=== PATIENT | male | born 1960 | race African-American/Black ===

== ENCOUNTER 2021-09-14 16:59 | Inpatient (IN) ==
[2021-09-14] MEDS ORDERED: MORPHINE 2 MG/1 ML SYRINGE IV STA (17:26)
[2021-09-14] MEDS ORDERED: SODIUM CHLORIDE 0.9% 1,000 ML IV STA (17:26)
[2021-09-14] MEDS ORDERED: ONDANSETRON 4 MG/2 ML VIAL IV STA (17:26)
[2021-09-14 17:41] LABS: Basophils % 0.2 % (0.0-0.8); Eosinophils # 0.1 10*3/uL (0.0-0.87); Eosinophils % 0.8 % (0.00-10.9); Hematocrit 39.3 VOL% (42.0-52.0); Hemoglobin 13.1 GM/DL (14.0-18.0); Immature Granulocytes % 1.3 %; Immature Granulocytes Absolute 0.14 #; Lymphocytes # 0.8 10*3/uL (1.4-4.0); Lymphocytes % 6.8 % (21.2-54.2); Mean Corpuscular HGB Conc 33.3 GM/DL (32-36); Mean Corpuscular Volume 97.5 FL (87-102); Mean Platelet Volume 9.8 FL (9.6-12.0); Monocytes % 12.3 % (1.7-12.7); Neutrophils % 78.6 % (38.7-73.9); Platelet Count 385 T/CUMM (130-400); Red Blood Count 4.03 MC/CUMM (3.8-5.5); Red Cell Distribution Width 12.6 % (9.3-17.3); White Blood Count 11.1 T/CUMM (4-12)
[2021-09-14 17:49] LABS: INR 1.1; PT Patient Result 12.3 SECS (10.5-12.0); Partial Thromboplastin Time 33.6 SECS (23.8-32.1)
[2021-09-14 17:57] LABS: Albumin 2.6 G/DL (3.4-5.0); Bilirubin,Total 1.4 MG/DL (0.20-1.00); Calcium 8.7 MG/DL (8.5-10.1); Osmolality,Calculated 276.5 MOS/KG (273-304); Potassium 4.4 MMOL/L (3.5-5.1); Total Protein 6.3 G/DL (6.4-8.2)
[2021-09-14] MEDS ORDERED: HYDROmorphone 2 MG/1 ML VIAL ONE (19:20)
[2021-09-14] MEDS ORDERED: HYDROmorphone 2 MG/1 ML VIAL IV ONE (19:30)
[2021-09-14] MEDS ORDERED: NITROGLYCERIN SL 0.4 MG TABLET SL PRN (20:32)
[2021-09-14] MEDS ORDERED: AMITRIPTYLINE 50 MG TABLET PO SCH (21:00)
[2021-09-14] MEDS ORDERED: carvediloL 12.5 MG TABLET PO SCH (21:00)
[2021-09-14] MEDS ORDERED: MULTIVITAMIN (BEROCCA) TABLET PO SCH (21:00)
[2021-09-14] MEDS ORDERED: MELOXICAM 7.5 MG TABLET PO SCH (21:00)
[2021-09-14] MEDS ORDERED: GABAPENTIN 400 MG CAPSULE PO SCH (21:00)
[2021-09-14] MEDS ORDERED: DEXAMETHASONE 4 MG TABLET PO SCH (21:00)
[2021-09-14] MEDS ORDERED: HYDROmorphone 2 MG/1 ML VIAL IV STA (23:05)
[2021-09-15] MEDS: SODIUM CHLORIDE 0.9% 1,000 ML IV SCH ×3 (01:07→18:08)
[2021-09-15] MEDS ORDERED: DEXTROSE 50% 25 GM/50 ML VIAL IV PRN (01:30)
[2021-09-15] MEDS ORDERED: GLUCAGON 1 MG VIAL IM PRN (01:30)
[2021-09-15] MEDS ORDERED: ONDANSETRON 4 MG/2 ML VIAL IV PRN (01:30)
[2021-09-15] MEDS: DOCUSATE SODIUM 100 MG CAPSULE PO SCH ×3 (01:41→20:43)
[2021-09-15] MEDS: INSULIN REGULAR 100 UNIT/ML SUBCUT SCH ×5 (01:41→20:44)
[2021-09-15] MEDS: oxyCODONE IR 5 MG TABLET PO PRN ×3 (02:46→19:29)
[2021-09-15] MEDS ORDERED: GLIMEPIRIDE 2 MG TABLET PO SCH (07:30)
[2021-09-15] MEDS ORDERED: metFORMIN 500 MG TABLET PO SCH (08:00)
[2021-09-15] MEDS ORDERED: PANTOPRAZOLE 20 MG TABLET PO SCH (09:00)
[2021-09-15] MEDS ORDERED: amLODIPine 10 MG TABLET PO SCH (09:00)
[2021-09-15] MEDS ORDERED: ASPIRIN EC 81 MG TABLET PO SCH (09:00)
[2021-09-15] MEDS ORDERED: LOSARTAN 25 MG TABLET PO SCH (09:00)
[2021-09-15] MEDS: PANTOPRAZOLE 40 MG TABLET PO SCH (09:10)
[2021-09-15] MEDS: HYDROmorphone 2 MG/1 ML VIAL IV PRN ×3 (09:16→21:53)
[2021-09-15] MEDS: ENOXAPARIN 40 MG/0.4 ML SYRINGE SUBCUT SCH (12:49)
[2021-09-16] MEDS: oxyCODONE IR 5 MG TABLET PO PRN (01:09)
[2021-09-16] MEDS: SODIUM CHLORIDE 0.9% 1,000 ML IV SCH ×3 (02:13→20:27)
[2021-09-16] MEDS: HYDROmorphone 2 MG/1 ML VIAL IV PRN ×6 (02:21→23:39)
[2021-09-16] MEDS: INSULIN REGULAR 100 UNIT/ML SUBCUT SCH ×4 (07:39→20:27)
[2021-09-16] MEDS: DOCUSATE SODIUM 100 MG CAPSULE PO SCH ×2 (08:00→20:27)
[2021-09-16] MEDS: PANTOPRAZOLE 40 MG TABLET PO SCH (08:00)
[2021-09-16] MEDS: oxyCODONE IR 5 MG TABLET PO SCH ×3 (12:15→22:32)
[2021-09-16] MEDS: SERTRALINE 25 MG TABLET PO SCH (12:18)
[2021-09-16] MEDS: ENOXAPARIN 40 MG/0.4 ML SYRINGE SUBCUT SCH (13:52)
[2021-09-17] MEDS: OXYCODONE 15 MG PO SCH ×5 (02:59→23:43)
[2021-09-17] MEDS: SODIUM CHLORIDE 0.9% 1,000 ML IV SCH ×3 (04:36→21:05)
[2021-09-17] MEDS: HYDROmorphone 2 MG/1 ML VIAL IV PRN ×5 (06:50→21:00)
[2021-09-17] MEDS: INSULIN REGULAR 100 UNIT/ML SUBCUT SCH ×4 (07:50→20:42)
[2021-09-17] MEDS: PANTOPRAZOLE 40 MG TABLET PO SCH (09:38)
[2021-09-17] MEDS: SERTRALINE 25 MG TABLET PO SCH (09:38)
[2021-09-17] MEDS: fentaNYL 50 MCG/HR PATCH TRANSDERM SCH (09:38)
[2021-09-17] MEDS: DOCUSATE SODIUM 100 MG CAPSULE PO SCH ×2 (09:38→21:01)
[2021-09-17] MEDS: ENOXAPARIN 40 MG/0.4 ML SYRINGE SUBCUT SCH (12:02)
[2021-09-17] MEDS: oxyCODONE IR 5 MG TABLET PO SCH ×3 (12:02→23:10)
[2021-09-17] MEDS: GABAPENTIN 400 MG CAPSULE PO SCH ×3 (14:17→20:47)
[2021-09-18] MEDS ORDERED: ALBUTEROL/IPRATROPIUM 3 ML NEB RESP TX PRN (02:14)
[2021-09-18] MEDS: HYDROmorphone 2 MG/1 ML VIAL IV PRN ×5 (03:27→21:04)
[2021-09-18] MEDS: LEVALBUTEROL 0.63 MG/3 ML NEB RESP TX PRN ×2 (03:40→13:50)
[2021-09-18] MEDS: SODIUM CHLORIDE 0.9% 1,000 ML IV SCH (05:05)
[2021-09-18] MEDS: OXYCODONE 15 MG PO SCH ×4 (05:58→23:56)
[2021-09-18] MEDS: oxyCODONE IR 5 MG TABLET PO SCH ×4 (06:03→23:56)
[2021-09-18] MEDS: INSULIN REGULAR 100 UNIT/ML SUBCUT SCH ×4 (08:14→20:57)
[2021-09-18] MEDS: DOCUSATE SODIUM 100 MG CAPSULE PO SCH ×2 (08:46→20:56)
[2021-09-18] MEDS: PANTOPRAZOLE 40 MG TABLET PO SCH (08:46)
[2021-09-18] MEDS: GABAPENTIN 400 MG CAPSULE PO SCH ×4 (08:46→21:08)
[2021-09-18] MEDS: SERTRALINE 25 MG TABLET PO SCH (08:46)
[2021-09-18] MEDS: ENOXAPARIN 40 MG/0.4 ML SYRINGE SUBCUT SCH (11:25)
[2021-09-18 11:41] LABS: Basophils % 0.2 % (0.0-0.8); Eosinophils # 0.1 10*3/uL (0.0-0.87); Eosinophils % 0.5 % (0.00-10.9); Hematocrit 34.8 VOL% (42.0-52.0); Hemoglobin 11.2 GM/DL (14.0-18.0); Immature Granulocytes % 1.1 %; Immature Granulocytes Absolute 0.11 #; Lymphocytes # 0.8 10*3/uL (1.4-4.0); Lymphocytes % 7.7 % (21.2-54.2); Mean Corpuscular HGB Conc 32.2 GM/DL (32-36); Mean Corpuscular Volume 99.7 FL (87-102); Mean Platelet Volume 9.8 FL (9.6-12.0); Monocytes % 14.7 % (1.7-12.7); Neutrophils % 75.8 % (38.7-73.9); Platelet Count 329 T/CUMM (130-400); Red Blood Count 3.49 MC/CUMM (3.8-5.5); Red Cell Distribution Width 12.8 % (9.3-17.3); White Blood Count 10.3 T/CUMM (4-12)
[2021-09-18 11:54] LABS: Albumin 2.3 G/DL (3.4-5.0); Bilirubin,Direct 0.47 MG/DL (0.0-0.20); Bilirubin,Indirect 0.4 MG/DL (0.0-1.0); Bilirubin,Total 0.9 MG/DL (0.20-1.00); Calcium 7.8 MG/DL (8.5-10.1); Osmolality,Calculated 277.4 MOS/KG (273-304); Total Protein 6.3 G/DL (6.4-8.2)
[2021-09-18] MEDS ORDERED: hydrALAZINE 20 MG/1 ML VIAL IV PRN (15:18)
[2021-09-18] MEDS: METOPROLOL TARTRATE 5 MG/5 ML VIAL IV SCH ×2 (18:13→23:57)
[2021-09-19] MEDS: METOPROLOL TARTRATE 5 MG/5 ML VIAL IV SCH ×3 (00:30→17:52)
[2021-09-19] MEDS: LEVALBUTEROL 0.63 MG/3 ML NEB RESP TX PRN ×2 (00:58→11:45)
[2021-09-19] MEDS: HYDROmorphone 2 MG/1 ML VIAL IV PRN ×6 (02:10→21:33)
[2021-09-19] MEDS: oxyCODONE IR 5 MG TABLET PO SCH ×4 (05:49→23:52)
[2021-09-19] MEDS: OXYCODONE 15 MG PO SCH ×4 (05:53→23:52)
[2021-09-19 06:03] LABS: Basophils % 0.1 % (0.0-0.8); Eosinophils # 0.1 10*3/uL (0.0-0.87); Eosinophils % 0.4 % (0.00-10.9); Hematocrit 34.6 VOL% (42.0-52.0); Hemoglobin 11.1 GM/DL (14.0-18.0); Immature Granulocytes % 0.9 %; Immature Granulocytes Absolute 0.13 #; Lymphocytes % 7.4 % (21.2-54.2); Mean Corpuscular HGB Conc 32.1 GM/DL (32-36); Mean Corpuscular Volume 98.6 FL (87-102); Monocytes % 14.9 % (1.7-12.7); Neutrophils % 76.3 % (38.7-73.9); Platelet Count 359 T/CUMM (130-400); Red Blood Count 3.51 MC/CUMM (3.8-5.5); Red Cell Distribution Width 12.8 % (9.3-17.3); White Blood Count 14.1 T/CUMM (4-12)
[2021-09-19 06:29] LABS: Albumin 2.2 G/DL (3.4-5.0); Bilirubin,Direct 0.74 MG/DL (0.0-0.20); Bilirubin,Indirect 1.2 MG/DL (0.0-1.0); Bilirubin,Total 1.9 MG/DL (0.20-1.00); Calcium 8.1 MG/DL (8.5-10.1); Osmolality,Calculated 273.7 MOS/KG (273-304); Total Protein 6.4 G/DL (6.4-8.2)
[2021-09-19 06:59] LABS: Free T4 (Free Thyroxine) 1.48 NG/DL (0.76-1.46); Thyroid Stimulating Hormone 0.656 uIU/ml (0.358-3.74)
[2021-09-19] MEDS: DOCUSATE SODIUM 100 MG CAPSULE PO SCH ×2 (10:52→21:24)
[2021-09-19] MEDS: SERTRALINE 25 MG TABLET PO SCH (10:53)
[2021-09-19] MEDS: GABAPENTIN 400 MG CAPSULE PO SCH ×4 (10:53→21:25)
[2021-09-19] MEDS: INSULIN REGULAR 100 UNIT/ML SUBCUT SCH ×4 (10:53→21:25)
[2021-09-19] MEDS: PANTOPRAZOLE 40 MG TABLET PO SCH (10:53)
[2021-09-19] MEDS: ENOXAPARIN 40 MG/0.4 ML SYRINGE SUBCUT SCH (12:48)
[2021-09-19] MEDS ORDERED: METOPROLOL TARTRATE 25 MG TABLET PO SCH (13:00)
[2021-09-19] MEDS: METOPROLOL TARTRATE 50 MG TABLET PO SCH (21:24)
[2021-09-20] MEDS: HYDROmorphone 2 MG/1 ML VIAL IV PRN ×4 (02:34→20:31)
[2021-09-20] MEDS: oxyCODONE IR 5 MG TABLET PO SCH ×3 (05:07→16:30)
[2021-09-20 05:16] LABS: Basophils % 0.1 % (0.0-0.8); Eosinophils # 0.1 10*3/uL (0.0-0.87); Eosinophils % 0.4 % (0.00-10.9); Hematocrit 34.8 VOL% (42.0-52.0); Hemoglobin 11.3 GM/DL (14.0-18.0); Immature Granulocytes % 1.2 %; Immature Granulocytes Absolute 0.17 #; Lymphocytes % 7.3 % (21.2-54.2); Mean Corpuscular HGB Conc 32.5 GM/DL (32-36); Mean Platelet Volume 9.7 FL (9.6-12.0); Monocytes % 14.3 % (1.7-12.7); Neutrophils % 76.7 % (38.7-73.9); Platelet Count 350 T/CUMM (130-400); Red Blood Count 3.48 MC/CUMM (3.8-5.5); Red Cell Distribution Width 12.7 % (9.3-17.3); White Blood Count 14.2 T/CUMM (4-12)
[2021-09-20 05:44] LABS: Calcium 8.3 MG/DL (8.5-10.1); Osmolality,Calculated 274.7 MOS/KG (273-304)
[2021-09-20 05:48] LABS: Risk Ratio 3.07; VLDL Cholesterol 15.8 MG/DL
[2021-09-20] MEDS: OXYCODONE 15 MG PO SCH ×3 (06:06→17:21)
[2021-09-20] MEDS: METOPROLOL TARTRATE 50 MG TABLET PO SCH (08:46)
[2021-09-20] MEDS: GABAPENTIN 400 MG CAPSULE PO SCH ×4 (08:46→21:24)
[2021-09-20] MEDS: PANTOPRAZOLE 40 MG TABLET PO SCH (08:46)
[2021-09-20] MEDS: DOCUSATE SODIUM 100 MG CAPSULE PO SCH ×2 (08:46→20:30)
[2021-09-20] MEDS: SERTRALINE 25 MG TABLET PO SCH (08:46)
[2021-09-20] MEDS: fentaNYL 50 MCG/HR PATCH TRANSDERM SCH (08:47)
[2021-09-20] MEDS: INSULIN REGULAR 100 UNIT/ML SUBCUT SCH ×4 (09:56→21:23)
[2021-09-20] MEDS: ENOXAPARIN 40 MG/0.4 ML SYRINGE SUBCUT SCH (11:01)
[2021-09-20] MEDS: BISOPROLOL 5 MG TABLET PO SCH ×2 (15:13→20:30)
[2021-09-20] MEDS ORDERED: ASPIRIN CHEW 81 MG TABLET PO ONE (15:15)
[2021-09-21] MEDS: oxyCODONE IR 5 MG TABLET PO SCH ×4 (00:13→18:04)
[2021-09-21] MEDS: OXYCODONE 15 MG PO SCH ×4 (00:31→18:29)
[2021-09-21] MEDS: HYDROmorphone 2 MG/1 ML VIAL IV PRN ×6 (01:49→22:46)
[2021-09-21] MEDS: LEVALBUTEROL 0.63 MG/3 ML NEB RESP TX PRN (07:21)
[2021-09-21] MEDS: ASPIRIN CHEW 81 MG TABLET PO SCH (08:53)
[2021-09-21] MEDS: SERTRALINE 25 MG TABLET PO SCH (08:53)
[2021-09-21] MEDS: PANTOPRAZOLE 40 MG TABLET PO SCH (08:53)
[2021-09-21] MEDS: GABAPENTIN 400 MG CAPSULE PO SCH ×4 (08:53→21:18)
[2021-09-21] MEDS: BISOPROLOL 5 MG TABLET PO SCH ×2 (08:53→21:17)
[2021-09-21] MEDS: DOCUSATE SODIUM 100 MG CAPSULE PO SCH ×2 (08:53→21:17)
[2021-09-21] MEDS: INSULIN REGULAR 100 UNIT/ML SUBCUT SCH ×4 (10:09→21:18)
[2021-09-21] MEDS: ENOXAPARIN 40 MG/0.4 ML SYRINGE SUBCUT SCH (12:22)
[2021-09-21] MEDS ORDERED: BISOPROLOL 5 MG TABLET PO ONE (12:35)
[2021-09-21] MEDS ORDERED: NITROGLYCERIN SL 0.4 MG TABLET SL PRN (12:39)
[2021-09-22] MEDS: oxyCODONE IR 5 MG TABLET PO SCH ×5 (00:12→23:46)
[2021-09-22] MEDS: OXYCODONE 15 MG PO SCH ×4 (00:13→17:56)
[2021-09-22] MEDS: HYDROmorphone 2 MG/1 ML VIAL IV PRN ×6 (02:09→21:44)
[2021-09-22 05:34] LABS: Basophils % 0.3 % (0.0-0.8); Eosinophils % 0.1 % (0.00-10.9); Hematocrit 34.9 VOL% (42.0-52.0); Hemoglobin 11.3 GM/DL (14.0-18.0); Immature Granulocytes % 1.3 %; Immature Granulocytes Absolute 0.21 #; Lymphocytes % 6.5 % (21.2-54.2); Mean Corpuscular HGB Conc 32.4 GM/DL (32-36); Mean Corpuscular Volume 99.1 FL (87-102); Mean Platelet Volume 10.1 FL (9.6-12.0); Monocytes % 14.6 % (1.7-12.7); Neutrophils % 77.2 % (38.7-73.9); Platelet Count 412 T/CUMM (130-400); Red Blood Count 3.52 MC/CUMM (3.8-5.5); Red Cell Distribution Width 12.7 % (9.3-17.3); White Blood Count 15.8 T/CUMM (4-12)
[2021-09-22 06:04] LABS: Calcium 8.4 MG/DL (8.5-10.1); Osmolality,Calculated 271.8 MOS/KG (273-304)
[2021-09-22] MEDS: INSULIN REGULAR 100 UNIT/ML SUBCUT SCH ×4 (07:37→21:43)
[2021-09-22] MEDS: GABAPENTIN 400 MG CAPSULE PO SCH ×4 (12:14→21:44)
[2021-09-22] MEDS: ENOXAPARIN 40 MG/0.4 ML SYRINGE SUBCUT SCH (12:17)
[2021-09-22] MEDS ORDERED: LIDOCAINE 2% 5 ML VIAL ONE (13:06)
[2021-09-22] MEDS ORDERED: propofoL 200 MG/20 ML VIAL IV ONE (13:06)
[2021-09-22] MEDS ORDERED: fentaNYL 100 MCG/2 ML VIAL ONE (13:06)
[2021-09-22] MEDS ORDERED: MIDAZOLAM 2 MG/2 ML VIAL ONE (13:06)
[2021-09-22] MEDS ORDERED: BUPIVACAINE MPF 0.25% 30 ML VIAL ONE (13:14)
[2021-09-22] MEDS ORDERED: DEXAMETHASONE 10 MG/1 ML VIAL ONE (13:14)
[2021-09-22] MEDS ORDERED: KETAMINE 500 MG/10 ML VIAL ONE (13:33)
[2021-09-22] MEDS ORDERED: LIDOCAINE 1% 50 ML VIAL ONE (13:42)
[2021-09-22] MEDS ORDERED: ALBUTEROL/IPRATROPIUM 3 ML NEB RESP TX ONE (13:57)
[2021-09-22] MEDS: ASPIRIN CHEW 81 MG TABLET PO SCH (15:01)
[2021-09-22] MEDS: PANTOPRAZOLE 40 MG TABLET PO SCH (15:01)
[2021-09-22] MEDS: DOCUSATE SODIUM 100 MG CAPSULE PO SCH ×2 (15:01→21:43)
[2021-09-22] MEDS: SERTRALINE 25 MG TABLET PO SCH (15:01)
[2021-09-22] MEDS: BISOPROLOL 5 MG TABLET PO SCH ×2 (15:02→21:44)
[2021-09-23] MEDS: OXYCODONE 15 MG PO SCH ×4 (00:57→17:58)
[2021-09-23] MEDS: HYDROmorphone 2 MG/1 ML VIAL IV PRN ×8 (01:02→21:44)
[2021-09-23] MEDS: oxyCODONE IR 5 MG TABLET PO SCH ×3 (05:06→17:11)
[2021-09-23] MEDS ORDERED: fentaNYL 100 MCG/2 ML VIAL ONE ×3 (06:56→11:14)
[2021-09-23] MEDS ORDERED: KETAMINE 500 MG/10 ML VIAL ONE (06:56)
[2021-09-23] MEDS ORDERED: MIDAZOLAM 2 MG/2 ML VIAL ONE (06:57)
[2021-09-23] MEDS ORDERED: ePHEDrine 50 MG/ML VIAL ONE (06:57)
[2021-09-23] MEDS: INSULIN REGULAR 100 UNIT/ML SUBCUT SCH ×4 (07:46→21:37)
[2021-09-23] MEDS: SODIUM CHLORIDE 0.45% 1,000 ML IV SCH (09:40)
[2021-09-23] MEDS ORDERED: ALBUTEROL/IPRATROPIUM 3 ML NEB RESP TX ONE (10:06)
[2021-09-23] MEDS ORDERED: LIDOCAINE 2% 5 ML VIAL ONE (10:19)
[2021-09-23] MEDS ORDERED: propofoL 200 MG/20 ML VIAL IV ONE (10:19)
[2021-09-23] MEDS ORDERED: PHENYLEPHRINE 10 MG/1 ML VIAL IV ONE (10:19)
[2021-09-23] MEDS ORDERED: SEVOFLURANE 1 UNIT/15 MINUTE INH ONE (10:19)
[2021-09-23] MEDS ORDERED: DEXAMETHASONE 4 MG/1 ML VIAL ONE (10:20)
[2021-09-23] MEDS ORDERED: SODIUM CHLORIDE 0.9% 1,000 ML IV ONE (10:20)
[2021-09-23] MEDS ORDERED: ROCURONIUM 50 MG/5 ML VIAL IV ONE (10:20)
[2021-09-23] MEDS ORDERED: ONDANSETRON 4 MG/2 ML VIAL ONE (10:20)
[2021-09-23] MEDS ORDERED: PHENYLEPHRINE DRIP 20 MG/250 ML PREMIX IV ONE (10:20)
[2021-09-23] MEDS ORDERED: ALBUTEROL INHALER 18 GM INH ONE (10:20)
[2021-09-23] MEDS ORDERED: ONDANSETRON 4 MG/2 ML VIAL IV PRN (10:20)
[2021-09-23] MEDS ORDERED: SODIUM CHLORIDE 0.9% 100 ML IV ONE (10:20)
[2021-09-23] MEDS ORDERED: DEXMEDETOMIDINE 200 MCG/2 ML VIAL ONE (10:21)
[2021-09-23] MEDS ORDERED: DEXMEDETOMIDINE 200 MCG in SODIUM CHLORIDE 0.9% 48 ML IV PRN ×2 (10:25→11:00)
[2021-09-23] MEDS ORDERED: fentaNYL 100 MCG/2 ML VIAL IV ONE (11:14)
[2021-09-23] MEDS ORDERED: HYDROmorphone 2 MG/1 ML VIAL IV ONE ×2 (11:57→13:33)
[2021-09-23] MEDS: fentaNYL 50 MCG/HR PATCH TRANSDERM SCH (12:02)
[2021-09-23] MEDS: DOCUSATE SODIUM 100 MG CAPSULE PO SCH ×2 (12:27→21:36)
[2021-09-23] MEDS: GABAPENTIN 400 MG CAPSULE PO SCH ×4 (12:27→21:36)
[2021-09-23] MEDS: SERTRALINE 25 MG TABLET PO SCH (12:36)
[2021-09-23] MEDS: BISOPROLOL 5 MG TABLET PO SCH ×2 (12:36→21:36)
[2021-09-23] MEDS: PANTOPRAZOLE 40 MG TABLET PO SCH (12:36)
[2021-09-23] MEDS: ENOXAPARIN 40 MG/0.4 ML SYRINGE SUBCUT SCH (12:36)
[2021-09-23] MEDS: ASPIRIN CHEW 81 MG TABLET PO SCH (12:36)
[2021-09-23] MEDS ORDERED: ACETAMINOPHEN 500 MG TABLET PO ONE (13:33)
[2021-09-23] MEDS ORDERED: KETOROLAC 30 MG/1 ML VIAL IM ONE (13:33)
[2021-09-23] MEDS: fentaNYL 100 MCG/HR PATCH TRANSDERM SCH (18:11)
[2021-09-23] MEDS: KETOROLAC 30 MG/1 ML VIAL IM SCH (18:11)
[2021-09-24] MEDS: KETOROLAC 30 MG/1 ML VIAL IM SCH ×4 (00:50→17:54)
[2021-09-24] MEDS: oxyCODONE IR 5 MG TABLET PO SCH ×4 (00:55→18:32)
[2021-09-24] MEDS: OXYCODONE 15 MG PO SCH ×5 (00:55→17:58)
[2021-09-24] MEDS: HYDROmorphone 2 MG/1 ML VIAL IV PRN ×4 (03:27→21:19)
[2021-09-24] MEDS: BISOPROLOL 5 MG TABLET PO SCH ×2 (08:26→21:12)
[2021-09-24] MEDS: GABAPENTIN 400 MG CAPSULE PO SCH ×4 (08:26→21:12)
[2021-09-24] MEDS: DOCUSATE SODIUM 100 MG CAPSULE PO SCH ×2 (08:26→21:12)
[2021-09-24] MEDS: SERTRALINE 25 MG TABLET PO SCH (08:26)
[2021-09-24] MEDS: PANTOPRAZOLE 40 MG TABLET PO SCH (08:26)
[2021-09-24] MEDS: ASPIRIN CHEW 81 MG TABLET PO SCH (08:26)
[2021-09-24] MEDS: INSULIN REGULAR 100 UNIT/ML SUBCUT SCH ×4 (09:22→21:12)
[2021-09-24] MEDS: SODIUM CHLORIDE 0.45% 1,000 ML IV SCH (09:22)
[2021-09-24] MEDS: ENOXAPARIN 40 MG/0.4 ML SYRINGE SUBCUT SCH (10:40)
[2021-09-25] MEDS: KETOROLAC 30 MG/1 ML VIAL IM SCH ×3 (00:47→11:55)
[2021-09-25] MEDS: OXYCODONE 15 MG PO SCH ×4 (00:48→17:58)
[2021-09-25] MEDS: HYDROmorphone 2 MG/1 ML VIAL IV PRN ×2 (08:03→22:46)
[2021-09-25] MEDS: GABAPENTIN 400 MG CAPSULE PO SCH ×4 (08:04→21:55)
[2021-09-25] MEDS: SERTRALINE 25 MG TABLET PO SCH (08:04)
[2021-09-25] MEDS: PANTOPRAZOLE 40 MG TABLET PO SCH (08:04)
[2021-09-25] MEDS: ASPIRIN CHEW 81 MG TABLET PO SCH (08:04)
[2021-09-25] MEDS: BISOPROLOL 5 MG TABLET PO SCH ×2 (08:04→21:34)
[2021-09-25] MEDS: DOCUSATE SODIUM 100 MG CAPSULE PO SCH ×2 (08:04→21:34)
[2021-09-25] MEDS ORDERED: MAGNESIUM HYDROXIDE SUSP 30 ML UDCUP PO ONE (08:36)
[2021-09-25] MEDS: POLYETHYLENE GLYCOL POWDER 17 GM PACK PO SCH (09:14)
[2021-09-25] MEDS: INSULIN REGULAR 100 UNIT/ML SUBCUT SCH ×4 (09:22→21:55)
[2021-09-25] MEDS: ENOXAPARIN 40 MG/0.4 ML SYRINGE SUBCUT SCH (10:47)
[2021-09-25] MEDS: ACETAMINOPHEN 325 MG TABLET PO PRN (23:00)
[2021-09-26] MEDS: OXYCODONE 15 MG PO SCH ×4 (00:50→18:03)
[2021-09-26] MEDS: HYDROmorphone 2 MG/1 ML VIAL IV PRN ×3 (06:21→22:34)
[2021-09-26 07:05] LABS: Basophils % 0.1 % (0.0-0.8); Eosinophils % 0.1 % (0.00-10.9); Hematocrit 34.3 VOL% (42.0-52.0); Hemoglobin 11.2 GM/DL (14.0-18.0); Immature Granulocytes % 1.8 %; Immature Granulocytes Absolute 0.29 #; Lymphocytes # 0.8 10*3/uL (1.4-4.0); Lymphocytes % 4.8 % (21.2-54.2); Mean Corpuscular HGB Conc 32.7 GM/DL (32-36); Mean Corpuscular Volume 99.1 FL (87-102); Mean Platelet Volume 10.3 FL (9.6-12.0); Monocytes % 12.9 % (1.7-12.7); Neutrophils % 80.3 % (38.7-73.9); Platelet Count 270 T/CUMM (130-400); Red Blood Count 3.46 MC/CUMM (3.8-5.5); White Blood Count 16.4 T/CUMM (4-12)
[2021-09-26 07:30] LABS: Calcium 7.3 MG/DL (8.5-10.1); Osmolality,Calculated 274.7 MOS/KG (273-304); Potassium 4.5 MMOL/L (3.5-5.1)
[2021-09-26] MEDS: DOCUSATE SODIUM 100 MG CAPSULE PO SCH ×2 (08:42→20:32)
[2021-09-26] MEDS: ASPIRIN CHEW 81 MG TABLET PO SCH (08:42)
[2021-09-26] MEDS: GABAPENTIN 400 MG CAPSULE PO SCH ×4 (08:42→20:33)
[2021-09-26] MEDS: PANTOPRAZOLE 40 MG TABLET PO SCH (08:42)
[2021-09-26] MEDS: BISOPROLOL 5 MG TABLET PO SCH ×2 (08:42→20:32)
[2021-09-26] MEDS: POLYETHYLENE GLYCOL POWDER 17 GM PACK PO SCH (08:42)
[2021-09-26] MEDS: SERTRALINE 25 MG TABLET PO SCH (08:43)
[2021-09-26] MEDS: PIPERACILLIN/TAZOBACTAM 3,375 MG in SODIUM CHLORIDE 0.9% 100 ML IV SCH ×2 (08:43→17:04)
[2021-09-26 09:18] LABS: Hypochromasia Slight; Platelet Estimate Normal; Polychromasia Slight; Segmented Neutrophils 90 % (50-85); Total Cells Counted 100
[2021-09-26] MEDS: INSULIN REGULAR 100 UNIT/ML SUBCUT SCH ×4 (10:06→20:33)
[2021-09-26] MEDS: fentaNYL 100 MCG/HR PATCH TRANSDERM SCH (10:27)
[2021-09-26] MEDS: ENOXAPARIN 40 MG/0.4 ML SYRINGE SUBCUT SCH (12:36)
[2021-09-26] MEDS: ACETAMINOPHEN 325 MG TABLET PO PRN (15:30)
[2021-09-27] MEDS: OXYCODONE 15 MG PO SCH ×4 (00:19→17:06)
[2021-09-27] MEDS: PIPERACILLIN/TAZOBACTAM 3,375 MG in SODIUM CHLORIDE 0.9% 100 ML IV SCH ×3 (00:19→17:06)
[2021-09-27] MEDS: HYDROmorphone 2 MG/1 ML VIAL IV PRN ×3 (04:30→19:44)
[2021-09-27 08:14] LABS: Bilirubin,Direct 1.42 MG/DL (0.0-0.20); Bilirubin,Indirect 0.5 MG/DL (0.0-1.0); Bilirubin,Total 1.9 MG/DL (0.20-1.00); Total Protein 6.6 G/DL (6.4-8.2)
[2021-09-27] MEDS: INSULIN REGULAR 100 UNIT/ML SUBCUT SCH ×4 (08:54→20:58)
[2021-09-27] MEDS: POLYETHYLENE GLYCOL POWDER 17 GM PACK PO SCH (09:34)
[2021-09-27] MEDS: PANTOPRAZOLE 40 MG TABLET PO SCH (09:34)
[2021-09-27] MEDS: ASPIRIN CHEW 81 MG TABLET PO SCH (09:34)
[2021-09-27] MEDS: BISOPROLOL 5 MG TABLET PO SCH ×2 (09:34→20:58)
[2021-09-27] MEDS: DOCUSATE SODIUM 100 MG CAPSULE PO SCH ×2 (09:34→20:58)
[2021-09-27] MEDS: GABAPENTIN 400 MG CAPSULE PO SCH ×4 (09:34→20:58)
[2021-09-27] MEDS: SERTRALINE 25 MG TABLET PO SCH (09:34)
[2021-09-27] MEDS: ENOXAPARIN 40 MG/0.4 ML SYRINGE SUBCUT SCH (12:08)
[2021-09-27 12:58] LABS: Bilirubin,Urine Negative (Negative); Blood, Urine Negative (Negative); Glucose,Urine (UA) Negative (Negative); Ketones,Urine Negative (Negative); Nitrite,Urine Negative (Negative); Protein,Urine Negative; RBC,Urine 2 /HPF (0-4); Squamous Epithelial Cell,Urine Occasional /HPF (0-10); Urine Appearance CLEAR (Clear); Urine Color Amber (Yellow); Urine Specific Gravity 1.019 (1.001-1.035)
[2021-09-27] MEDS: ACETAMINOPHEN 325 MG TABLET PO PRN (21:11)
[2021-09-28] MEDS: PIPERACILLIN/TAZOBACTAM 3,375 MG in SODIUM CHLORIDE 0.9% 100 ML IV SCH ×3 (01:02→18:13)
[2021-09-28] MEDS: OXYCODONE 15 MG PO SCH ×5 (01:02→18:11)
[2021-09-28] MEDS: HYDROmorphone 2 MG/1 ML VIAL IV PRN ×6 (05:18→21:02)
[2021-09-28] MEDS: INSULIN REGULAR 100 UNIT/ML SUBCUT SCH ×4 (08:36→21:02)
[2021-09-28] MEDS: DOCUSATE SODIUM 100 MG CAPSULE PO SCH ×2 (09:28→21:01)
[2021-09-28] MEDS: POLYETHYLENE GLYCOL POWDER 17 GM PACK PO SCH (09:28)
[2021-09-28] MEDS: ASPIRIN CHEW 81 MG TABLET PO SCH (09:28)
[2021-09-28] MEDS: GABAPENTIN 400 MG CAPSULE PO SCH ×4 (09:28→21:02)
[2021-09-28] MEDS: BISOPROLOL 5 MG TABLET PO SCH ×2 (09:29→21:01)
[2021-09-28] MEDS: SERTRALINE 25 MG TABLET PO SCH (09:29)
[2021-09-28] MEDS: PANTOPRAZOLE 40 MG TABLET PO SCH (09:29)
[2021-09-28] MEDS ORDERED: PROMETHAZINE INJ 25 MG in SODIUM CHLORIDE 0.9% 50 ML IV PRN (10:22)
[2021-09-28] MEDS ORDERED: MEPERIDINE 25 MG/1 ML VIAL IV PRN (10:22)
[2021-09-28] MEDS ORDERED: diphenhydrAMINE 50 MG/1 ML VIAL IV PRN (10:22)
[2021-09-28] MEDS ORDERED: ONDANSETRON 4 MG/2 ML VIAL IV PRN (10:22)
[2021-09-28] MEDS ORDERED: LIDOCAINE 2% 5 ML VIAL ONE (10:29)
[2021-09-28] MEDS ORDERED: propofoL 200 MG/20 ML VIAL IV ONE (10:29)
[2021-09-28] MEDS ORDERED: fentaNYL 100 MCG/2 ML VIAL ONE (10:30)
[2021-09-28] MEDS ORDERED: MIDAZOLAM 2 MG/2 ML VIAL ONE (10:30)
[2021-09-28] MEDS ORDERED: KETAMINE 500 MG/10 ML VIAL ONE (10:30)
[2021-09-28] MEDS ORDERED: PHENYLEPHRINE 10 MG/1 ML VIAL IV ONE (10:31)
[2021-09-28] MEDS ORDERED: DEXAMETHASONE 4 MG/1 ML VIAL ONE (10:31)
[2021-09-28] MEDS ORDERED: SODIUM CHLORIDE 0.9% 200 ML IV ONE (10:31)
[2021-09-28] MEDS ORDERED: SODIUM CHLORIDE 0.9% 1,000 ML IV ONE (10:31)
[2021-09-28] MEDS ORDERED: ONDANSETRON 4 MG/2 ML VIAL ONE (10:31)
[2021-09-28] MEDS ORDERED: DEXMEDETOMIDINE 200 MCG/2 ML VIAL ONE (10:31)
[2021-09-28] MEDS ORDERED: ETOMIDATE 40 MG/20 ML VIAL IV ONE (10:31)
[2021-09-28] MEDS ORDERED: MEPERIDINE 50 MG/1 ML VIAL IV PRN (11:00)
[2021-09-28] MEDS: SODIUM CHLORIDE 0.45% 1,000 ML IV SCH (11:25)
[2021-09-28] MEDS: ENOXAPARIN 40 MG/0.4 ML SYRINGE SUBCUT SCH (12:20)
[2021-09-28] MEDS ORDERED: DEXTROSE 50% 25 GM/50 ML VIAL IV PRN (14:29)
[2021-09-29] MEDS: OXYCODONE 15 MG PO SCH ×2 (00:47→05:44)
[2021-09-29] MEDS: PIPERACILLIN/TAZOBACTAM 3,375 MG in SODIUM CHLORIDE 0.9% 100 ML IV SCH ×2 (00:47→08:53)
[2021-09-29] MEDS: HYDROmorphone 2 MG/1 ML VIAL IV PRN ×2 (04:16→07:43)
[2021-09-29] MEDS: GABAPENTIN 400 MG CAPSULE PO SCH (08:52)
[2021-09-29] MEDS: ASPIRIN CHEW 81 MG TABLET PO SCH (08:52)
[2021-09-29] MEDS: DOCUSATE SODIUM 100 MG CAPSULE PO SCH (08:52)
[2021-09-29] MEDS: POLYETHYLENE GLYCOL POWDER 17 GM PACK PO SCH (08:53)
[2021-09-29] MEDS: PANTOPRAZOLE 40 MG TABLET PO SCH (08:53)
[2021-09-29] MEDS: SERTRALINE 25 MG TABLET PO SCH (08:53)
[2021-09-29] MEDS: BISOPROLOL 5 MG TABLET PO SCH (08:53)
[2021-09-29] MEDS: fentaNYL 100 MCG/HR PATCH TRANSDERM SCH (10:08)
[2021-09-29] MEDS: INSULIN REGULAR 100 UNIT/ML SUBCUT SCH ×2 (10:22→13:01)
[2021-09-29] MEDS: SODIUM CHLORIDE 0.45% 1,000 ML IV SCH (10:22)
[2021-09-29] MEDS: ENOXAPARIN 40 MG/0.4 ML SYRINGE SUBCUT SCH (12:31)
[2021-09-29 14:50] VITALS: BP 120/64
== END 2021-09-29 13:02 | disposition home or self-care (01) | DRG 516 ==
LOC: N.EDINP 16:59 → N.ED 16:59 → N.TELES 09-15 01:00
PROVIDERS: ADMIT Family Medicine; ATTEND Family Medicine

== ENCOUNTER 2021-10-28 07:08 | Inpatient (IN) ==
[2021-10-28] MEDS ORDERED: methylPREDNISolone SOD SUC 125 MG/2 ML VIAL IV STA (07:46)
[2021-10-28] MEDS ORDERED: FUROSEMIDE 100 MG/10 ML VIAL IV STA (07:46)
[2021-10-28] MEDS ORDERED: ALBUTEROL NEB SOLN 5 MG/ML 20 ML/BOTTLE CONT NEB SCH (08:00)
[2021-10-28] MEDS ORDERED: ALBUTEROL 2.5 MG/3 ML NEB RESP TX ONE (08:08)
[2021-10-28 08:11] LABS: Hematocrit 31.5 VOL% (42.0-52.0); Hemoglobin 10.2 GM/DL (14.0-18.0); Immature Granulocytes % 9.3 %; Immature Granulocytes Absolute 0.42 #; Lymphocytes # 0.2 10*3/uL (1.4-4.0); Mean Corpuscular HGB Conc 32.4 GM/DL (32-36); Mean Platelet Volume 10.6 FL (9.6-12.0); Neutrophils % 64.7 % (38.7-73.9); Platelet Count 178 T/CUMM (130-400); Red Blood Count 3.35 MC/CUMM (3.8-5.5); White Blood Count 4.5 T/CUMM (4-12)
[2021-10-28 08:22] LABS: ABG Base Excess -7.3 MMOL/L (-2.5-2.5); ABG HCO3 18.4 MMOL/L (20-26); ABG Oxygen Saturation 91.4 % (95-100); ABG PCO2 39.1 MM HG (35-48); ABG PH 7.291 (7.35-7.45); ABG PO2 68.8 MM HG (80-95); ABG TCO2 17.4 MMOL/L (23-27)
[2021-10-28 08:29] LABS: Partial Thromboplastin Time 32.6 SECS (23.8-32.1)
[2021-10-28 08:31] LABS: Albumin 2.4 G/DL (3.4-5.0); Bilirubin,Total 1.9 MG/DL (0.20-1.00); Calcium 6.7 MG/DL (8.5-10.1); Osmolality,Calculated 283.2 MOS/KG (273-304); Total Protein 6.2 G/DL (6.4-8.2)
[2021-10-28 08:37] LABS: Potassium 6.3 MMOL/L (3.5-5.1)
[2021-10-28] MEDS ORDERED: SODIUM BICARBONATE 50 MEQ/50 ML VIAL IV STA (08:38)
[2021-10-28] MEDS ORDERED: DEXTROSE 50% 25 GM/50 ML VIAL IV STA (08:38)
[2021-10-28] MEDS ORDERED: SODIUM CHLORIDE 0.9% 1,000 ML IV STA (08:38)
[2021-10-28] MEDS ORDERED: INSULIN REGULAR 100 UNIT/ML IV STA (08:39)
[2021-10-28] MEDS ORDERED: CALCIUM CHLORIDE 1,000 MG/10 ML SYRINGE IV STA (08:40)
[2021-10-28 08:46] LABS: Band Neutrophils 7 % (0-10); Hypochromasia 1+; Lymphocytes 3 % (20-55); Metamyelocytes 1 %; Microcytosis 1+; Myelocytes 1 %; Ovalocytes Slight; Segmented Neutrophils 70 % (50-85); Total Cells Counted 100
[2021-10-28] MEDS ORDERED: SODIUM ZIRCONIUM CYCLOSILICATE 10 GM PACK ONE (08:52)
[2021-10-28] MEDS ORDERED: DEXTROSE 50% 25 GM/50 ML SYRINGE IV ONE ×2 (08:57→16:28)
[2021-10-28] MEDS ORDERED: SODIUM ZIRCONIUM CYCLOSILICATE 10 GM PACK PO SCH (09:00)
[2021-10-28] MEDS: DEXAMETHASONE 4 MG/1 ML VIAL IV SCH ×3 (12:37→23:07)
[2021-10-28] MEDS ORDERED: CALCIUM GLUCONATE 2,000 MG in SODIUM CHLORIDE 0.9% 100 ML IV ONE ×2 (13:22→16:29)
[2021-10-28] MEDS ORDERED: MEROPENEM 500 MG in SODIUM CHLORIDE 0.9% 100 ML IV SCH (14:00)
[2021-10-28] MEDS ORDERED: INSULIN REGULAR 100 UNIT/ML IV ONE (16:28)
[2021-10-28] MEDS ORDERED: DEXTROSE 50% 25 GM/50 ML SYRINGE IV STA (16:28)
[2021-10-28] MEDS: ALBUTEROL 2.5 MG/3 ML NEB RESP TX SCH (19:20)
[2021-10-28] MEDS: MEROPENEM 500 MG in SODIUM CHLORIDE 0.9% 100 ML IV SCH (20:35)
[2021-10-29] MEDS: ALBUTEROL 2.5 MG/3 ML NEB RESP TX SCH ×4 (00:40→19:39)
[2021-10-29 04:47] LABS: Calcium 7.2 MG/DL (8.5-10.1); Osmolality,Calculated 294.9 MOS/KG (273-304)
[2021-10-29 05:05] LABS: Potassium 6.3 MMOL/L (3.5-5.1)
[2021-10-29] MEDS: MEROPENEM 500 MG in SODIUM CHLORIDE 0.9% 100 ML IV SCH ×3 (05:53→20:36)
[2021-10-29] MEDS: DEXAMETHASONE 4 MG/1 ML VIAL IV SCH ×4 (05:54→23:20)
[2021-10-29 08:18] LABS: Hematocrit 27.1 VOL% (42.0-52.0); Hemoglobin 8.7 GM/DL (14.0-18.0); Immature Granulocytes % 0.9 %; Immature Granulocytes Absolute 0.04 #; Lymphocytes # 0.3 10*3/uL (1.4-4.0); Lymphocytes % 6.8 % (21.2-54.2); Mean Corpuscular HGB Conc 32.1 GM/DL (32-36); Mean Corpuscular Volume 94.4 FL (87-102); Mean Platelet Volume 10.6 FL (9.6-12.0); Monocytes % 14.5 % (1.7-12.7); Neutrophils % 77.8 % (38.7-73.9); Platelet Count 202 T/CUMM (130-400); Red Blood Count 2.87 MC/CUMM (3.8-5.5); Red Cell Distribution Width 15.2 % (9.3-17.3); White Blood Count 4.3 T/CUMM (4-12)
[2021-10-29] MEDS ORDERED: INSULIN REGULAR 100 UNIT/ML IV ONE (08:31)
[2021-10-29] MEDS ORDERED: DEXTROSE 50% 25 GM/50 ML VIAL IV STA (08:31)
[2021-10-29] MEDS ORDERED: DEXTROSE 50% 25 GM/50 ML SYRINGE IV ONE (08:31)
[2021-10-29] MEDS: SODIUM ZIRCONIUM CYCLOSILICATE 10 GM PACK PO SCH ×3 (08:36→20:32)
[2021-10-29 08:44] LABS: Band Neutrophils 28 % (0-10); Lymphocytes 6 % (20-55); Platelet Estimate Normal; Segmented Neutrophils 55 % (50-85); Total Cells Counted 100
[2021-10-29 08:45] LABS: Anisocytosis 2+; Burr Cells Few; Macrocytosis Slight; Smudge Cells Few
[2021-10-29] MEDS: SODIUM CHLORIDE 0.45% 1,000 ML IV SCH (09:09)
[2021-10-29] MEDS ORDERED: NITROGLYCERIN SL 0.4 MG TABLET SL PRN (09:24)
[2021-10-29] MEDS ORDERED: LEVALBUTEROL 1.25 MG/3 ML NEB RESP TX PRN (09:24)
[2021-10-29] MEDS: oxyCODONE IR 5 MG TABLET PO SCH ×4 (10:11→20:47)
[2021-10-29] MEDS: GABAPENTIN 400 MG CAPSULE PO SCH ×3 (15:32→20:48)
[2021-10-29] MEDS ORDERED: SODIUM CHLORIDE 0.9% 500 ML IV ONE (16:46)
[2021-10-29] MEDS: ACETAMINOPHEN 325 MG TABLET PO PRN (18:02)
[2021-10-29] MEDS: BISOPROLOL 5 MG TABLET PO SCH (20:33)
[2021-10-29] MEDS: AMITRIPTYLINE 50 MG TABLET PO SCH (20:34)
[2021-10-30] MEDS: ALBUTEROL 2.5 MG/3 ML NEB RESP TX SCH ×4 (01:00→20:17)
[2021-10-30] MEDS: SODIUM CHLORIDE 0.45% 1,000 ML IV SCH ×3 (01:11→12:34)
[2021-10-30] MEDS: oxyCODONE IR 5 MG TABLET PO SCH ×4 (02:39→21:23)
[2021-10-30] MEDS: MEROPENEM 500 MG in SODIUM CHLORIDE 0.9% 100 ML IV SCH ×3 (04:08→21:19)
[2021-10-30] MEDS: DEXAMETHASONE 4 MG/1 ML VIAL IV SCH ×3 (05:21→17:25)
[2021-10-30 06:07] LABS: Basophils % 0.2 % (0.0-0.8); Hematocrit 25.6 VOL% (42.0-52.0); Hemoglobin 8.3 GM/DL (14.0-18.0); Immature Granulocytes % 1.3 %; Immature Granulocytes Absolute 0.07 #; Lymphocytes # 0.1 10*3/uL (1.4-4.0); Lymphocytes % 2.5 % (21.2-54.2); Mean Corpuscular HGB Conc 32.4 GM/DL (32-36); Mean Corpuscular Volume 92.8 FL (87-102); Mean Platelet Volume 10.3 FL (9.6-12.0); Monocytes % 14.6 % (1.7-12.7); Neutrophils % 81.4 % (38.7-73.9); Platelet Count 198 T/CUMM (130-400); Red Blood Count 2.76 MC/CUMM (3.8-5.5); Red Cell Distribution Width 15.4 % (9.3-17.3); White Blood Count 5.2 T/CUMM (4-12)
[2021-10-30 06:30] LABS: Band Neutrophils 1 % (0-10); Hypochromasia 1+; Lymphocytes 2 % (20-55); Microcytosis 1+; Platelet Estimate Adequate; Segmented Neutrophils 81 % (50-85); Total Cells Counted 100
[2021-10-30 06:31] LABS: Albumin 1.9 G/DL (3.4-5.0); Bilirubin,Direct 1.12 MG/DL (0.0-0.20); Bilirubin,Indirect 0.6 MG/DL (0.0-1.0); Bilirubin,Total 1.7 MG/DL (0.20-1.00); Calcium 6.4 MG/DL (8.5-10.1); Osmolality,Calculated 292.4 MOS/KG (273-304); Potassium 4.5 MMOL/L (3.5-5.1)
[2021-10-30] MEDS: MULTIVITAMIN (CENTRUM) TABLET PO SCH (08:44)
[2021-10-30] MEDS: SERTRALINE 25 MG TABLET PO SCH (08:44)
[2021-10-30] MEDS: POLYETHYLENE GLYCOL POWDER 17 GM PACK PO SCH (08:44)
[2021-10-30] MEDS: LOSARTAN 25 MG TABLET PO SCH (08:44)
[2021-10-30] MEDS: SODIUM ZIRCONIUM CYCLOSILICATE 10 GM PACK PO SCH ×3 (08:44→20:51)
[2021-10-30] MEDS: ASPIRIN EC 81 MG TABLET PO SCH (08:44)
[2021-10-30] MEDS: GABAPENTIN 400 MG CAPSULE PO SCH ×5 (08:45→21:19)
[2021-10-30] MEDS: amLODIPine 10 MG TABLET PO SCH (08:45)
[2021-10-30] MEDS: BISOPROLOL 5 MG TABLET PO SCH ×2 (08:45→21:23)
[2021-10-30] MEDS: AMITRIPTYLINE 50 MG TABLET PO SCH (20:51)
[2021-10-31] MEDS: SODIUM CHLORIDE 0.45% 1,000 ML IV SCH ×3 (00:12→18:12)
[2021-10-31] MEDS: DEXAMETHASONE 4 MG/1 ML VIAL IV SCH ×4 (00:13→17:06)
[2021-10-31] MEDS: ALBUTEROL 2.5 MG/3 ML NEB RESP TX SCH ×4 (01:00→20:18)
[2021-10-31] MEDS: oxyCODONE IR 5 MG TABLET PO SCH ×4 (02:39→21:58)
[2021-10-31] MEDS: MEROPENEM 500 MG in SODIUM CHLORIDE 0.9% 100 ML IV SCH ×3 (05:42→20:55)
[2021-10-31 09:04] LABS: Osmolality,Calculated 296.7 MOS/KG (273-304); Potassium 3.6 MMOL/L (3.5-5.1)
[2021-10-31 09:07] LABS: Basophils % 0.3 % (0.0-0.8); Hematocrit 28.5 VOL% (42.0-52.0); Hemoglobin 9.3 GM/DL (14.0-18.0); Immature Granulocytes % 2.2 %; Immature Granulocytes Absolute 0.17 #; Lymphocytes # 0.2 10*3/uL (1.4-4.0); Lymphocytes % 1.9 % (21.2-54.2); Mean Corpuscular HGB Conc 32.6 GM/DL (32-36); Mean Corpuscular Volume 93.1 FL (87-102); Mean Platelet Volume 10.4 FL (9.6-12.0); Monocytes % 11.4 % (1.7-12.7); Neutrophils % 84.2 % (38.7-73.9); Platelet Count 204 T/CUMM (130-400); Red Blood Count 3.06 MC/CUMM (3.8-5.5); Red Cell Distribution Width 15.4 % (9.3-17.3); White Blood Count 7.8 T/CUMM (4-12)
[2021-10-31 09:19] LABS: Band Neutrophils 1 % (0-10); Lymphocytes 1 % (20-55); Segmented Neutrophils 88 % (50-85); Total Cells Counted 100
[2021-10-31 09:20] LABS: Hypochromasia Slight; Microcytosis 1+; Ovalocytes Slight; Platelet Estimate Normal
[2021-10-31] MEDS: BISOPROLOL 5 MG TABLET PO SCH ×2 (09:30→20:55)
[2021-10-31] MEDS: SERTRALINE 25 MG TABLET PO SCH (09:30)
[2021-10-31] MEDS: GABAPENTIN 400 MG CAPSULE PO SCH ×4 (09:30→21:58)
[2021-10-31] MEDS: POLYETHYLENE GLYCOL POWDER 17 GM PACK PO SCH (09:30)
[2021-10-31] MEDS: ASPIRIN EC 81 MG TABLET PO SCH (09:30)
[2021-10-31] MEDS: MULTIVITAMIN (CENTRUM) TABLET PO SCH (09:30)
[2021-10-31] MEDS: amLODIPine 10 MG TABLET PO SCH (10:51)
[2021-10-31] MEDS: LOSARTAN 25 MG TABLET PO SCH (10:51)
[2021-10-31] MEDS: ACETAMINOPHEN 325 MG TABLET PO PRN (14:55)
[2021-10-31] MEDS ORDERED: fentaNYL 100 MCG/HR PATCH TRANSDERM SCH (16:09)
[2021-10-31] MEDS: AMITRIPTYLINE 50 MG TABLET PO SCH (21:58)
[2021-11-01] MEDS: DEXAMETHASONE 4 MG/1 ML VIAL IV SCH ×5 (00:03→23:30)
[2021-11-01] MEDS: oxyCODONE IR 5 MG TABLET PO SCH ×4 (02:56→21:20)
[2021-11-01 03:19] LABS: Basophils % 0.2 % (0.0-0.8); Hematocrit 27.6 VOL% (42.0-52.0); Hemoglobin 8.9 GM/DL (14.0-18.0); Immature Granulocytes % 5.5 %; Immature Granulocytes Absolute 0.56 #; Lymphocytes # 0.2 10*3/uL (1.4-4.0); Lymphocytes % 1.6 % (21.2-54.2); Mean Corpuscular HGB Conc 32.2 GM/DL (32-36); Mean Corpuscular Volume 91.7 FL (87-102); Mean Platelet Volume 10.4 FL (9.6-12.0); Monocytes % 9.3 % (1.7-12.7); Neutrophils % 83.4 % (38.7-73.9); Platelet Count 226 T/CUMM (130-400); Red Blood Count 3.01 MC/CUMM (3.8-5.5); Red Cell Distribution Width 15.3 % (9.3-17.3); White Blood Count 10.3 T/CUMM (4-12)
[2021-11-01 03:29] LABS: Osmolality,Calculated 310.5 MOS/KG (273-304); Potassium 3.9 MMOL/L (3.5-5.1)
[2021-11-01 03:53] LABS: Band Neutrophils 2 % (0-10); Hypochromasia 1+; Lymphocytes 1 % (20-55); Microcytosis 1+; Segmented Neutrophils 89 % (50-85); Total Cells Counted 100
[2021-11-01 03:54] LABS: Ovalocytes Slight; Target Cells Slight
[2021-11-01] MEDS: MEROPENEM 500 MG in SODIUM CHLORIDE 0.9% 100 ML IV SCH ×3 (05:07→21:33)
[2021-11-01] MEDS: SODIUM CHLORIDE 0.45% 1,000 ML IV SCH ×3 (08:12→21:35)
[2021-11-01] MEDS ORDERED: fentaNYL 100 MCG/HR PATCH TRANSDERM SCH (09:00)
[2021-11-01] MEDS: GABAPENTIN 400 MG CAPSULE PO SCH ×5 (09:15→21:20)
[2021-11-01] MEDS: amLODIPine 10 MG TABLET PO SCH (09:15)
[2021-11-01] MEDS: BISOPROLOL 5 MG TABLET PO SCH ×2 (09:15→21:20)
[2021-11-01] MEDS: MULTIVITAMIN (CENTRUM) TABLET PO SCH (09:15)
[2021-11-01] MEDS: LOSARTAN 25 MG TABLET PO SCH (09:15)
[2021-11-01] MEDS: ASPIRIN EC 81 MG TABLET PO SCH (09:16)
[2021-11-01] MEDS: SERTRALINE 25 MG TABLET PO SCH (09:16)
[2021-11-01] MEDS: POLYETHYLENE GLYCOL POWDER 17 GM PACK PO SCH (09:19)
[2021-11-01] MEDS: ALBUTEROL 2.5 MG/3 ML NEB RESP TX SCH ×4 (09:20→19:45)
[2021-11-01] MEDS: AMITRIPTYLINE 50 MG TABLET PO SCH (21:21)
[2021-11-01] MEDS: ZINC OXIDE PASTE 113 GM TUBE TOP SCH (21:31)
[2021-11-02] MEDS: ALBUTEROL 2.5 MG/3 ML NEB RESP TX SCH ×2 (00:34→07:10)
[2021-11-02] MEDS: oxyCODONE IR 5 MG TABLET PO SCH ×2 (04:04→09:24)
[2021-11-02] MEDS: DEXAMETHASONE 4 MG/1 ML VIAL IV SCH (05:44)
[2021-11-02] MEDS: MEROPENEM 500 MG in SODIUM CHLORIDE 0.9% 100 ML IV SCH (05:44)
[2021-11-02 08:21] VITALS: BP 125/72
[2021-11-02] MEDS: amLODIPine 10 MG TABLET PO SCH (08:37)
[2021-11-02] MEDS: BISOPROLOL 5 MG TABLET PO SCH (08:37)
[2021-11-02] MEDS: ASPIRIN EC 81 MG TABLET PO SCH (08:37)
[2021-11-02] MEDS: MULTIVITAMIN (CENTRUM) TABLET PO SCH (08:37)
[2021-11-02] MEDS: SERTRALINE 25 MG TABLET PO SCH (08:37)
[2021-11-02] MEDS: GABAPENTIN 400 MG CAPSULE PO SCH (08:38)
[2021-11-02] MEDS: LOSARTAN 25 MG TABLET PO SCH (08:40)
[2021-11-02] MEDS: ZINC OXIDE PASTE 113 GM TUBE TOP SCH (08:40)
[2021-11-02] MEDS: POLYETHYLENE GLYCOL POWDER 17 GM PACK PO SCH (08:41)
== END 2021-11-02 11:00 | disposition home health service (06) | DRG 80 ==
LOC: N.ED 07:08 → N.2E 09:25
PROVIDERS: ADMIT Family Medicine; ATTEND Family Medicine